=== PATIENT | male | born 1970 ===

== ENCOUNTER 2025-03-10 08:17 | Outpatient (AMB) | payer OTHER, SELFPAY ==
--- OUTSIDE RECORDS SUMMARY | 2025-03-10 09:08 | XMS_ITS | Clinical Summary ---
Author Organization [facility] Address [facility] [employer] [address] [place] [address] Phone Care Team Providers Care Inspector General Name Role Phone Kali Ugarte MD Primary Care Provider [phone] Social History Tobacco Use Types Packs/Day Years Used Date Smoking Tobacco: Never Assessed Education Answer Date Recorded Are you interested in more education? Not on lanre e 10/28/2022 Are you concerned about learning? Not on file 10/28/2022 No 10/28/2022 No 10/28/2022 Digital Access Answer Date Recorded No 11/28/2022 No 11/28/2022 No 11/28/2022 Reliable internet access at home? Not on file 11/28/2022 Device with a working camera? Not on file Sex and Gender Information Value Date Recorded Sex Assigned at Not on file Legal Sex Male 12:13 PM EDT Gender Identity Not on file Sexual Orientation Not on file Last Filed Vital Signs Vital Sign Reading Time Taken Comments Blood Pressure 139/93 11/08/2016 10:22 AM EDT Pulse 71 11/08/2016 10:22 AM EDT Temperature - - Respiratory Rate 18 11/08/2016 10:22 AM EDT Oxygen Saturation 98% 11/08/2016 10:22 AM EDT Inhaled Oxygen Concentration - - Weight - - Height - - Body Mass Index - - Plan of Treatment Health Maintenance Due Date Last Done Comments Adult Td,Tdap Booster 1969 LIPID PANEL 1969 DEPRESSION SCREENING 1981 SMOKING Hx and SMOKELESS TOB ACCO SCREENING 1982 HEPATITIS C SCREENING 11/13/1987 HIV ONE-TIME SCREENING (18-6 5 YEARS) 11/13/1987 COLOGUARD 2014 COLONOSCOPY 2014 COLORECTAL CANCER SCREENING 2014 FIT TEST 2014 FOBT 2014 SIGMOIDOSCOPY 2014 VIRTUAL COLONOSCOPY 2014 PNEUMOCOCCAL VACCINES (50+ y ears) (1 of 1 - PCV) 11/13/2019 ZOSTER VACCINES (1 of 2) 11/13/2019 COVID-19 VACCINE (1 - 2023-2 5 season) 2024 INFLUENZA VACCINE (#1) 2025 HEPATITIS A VACCINES Aged Out No long er eligible based on patient's age to complete this topic HIB VACCINES Aged Out No longer eligi ble based on patient's age to complete this topic MENINGOCOCCAL VACCINES (ACWY) Aged Out No longer eligible based on patient's age to complete this topic MENINGOCOCCAL VACCINES (B) Aged Out N o longer eligible based on patient's age to complete this topic Medical Devices Not on file Insurance [employer] TOTAL CHOICE INDEMNITY [employer] TOTAL CHOICE INDEMNITY [employer] TOTAL CHOICE INDEMNITY [employer] TOTAL CHOICE INDEMNITY [employer] TOTAL CHOICE INDEMNITY [employer] TOTAL CHOICE INDEMNITY [employer] TOTAL CHOICE INDEMNITY [employer] TOTAL CHOICE INDEMNITY [employer] [place] [address] Care Teams Inspector General Relationship Specialty Start Date End Date Kali Ugarte MD PCP - General Internal Medicine 03/26/15 Additional Source Comments The information contained in this document represents components of the legal health record. It is not the complete legal health record.[facility]
== END 2025-03-10 08:20 | disposition home or self-care (01) ==
LOC: HO.HMGAL 08:17
PROVIDERS: PCP Internal Medicine; Visit Provider Registered Nurse Emergency
DX: J30.89 Other allergic rhinitis (principal)
CPT/HCPCS: 95117; 95165

== ENCOUNTER 2025-03-24 08:42 | Outpatient (AMB) | payer OTHER, SELFPAY ==
--- OUTSIDE RECORDS SUMMARY | 2025-03-24 10:03 | XMS_ITS | Clinical Summary ---
Author Organization [facility] Address [facility] [employer] [address] [place] [phone] Phone Care Team Providers Care Claims Service Adjustor Name Role Phone Kali Ugarte MD Primary Care Provider [phone] Social History Tobacco Use Types Packs/Day Years [...] topic Medical Devices Not on file Insurance [employer] TOTAL CHOICE INDEMNITY [employer] TOTAL CHOICE INDEMNITY [employer] TOTAL CHOICE INDEMNITY [employer] TOTAL CHOICE INDEMNITY [employer] TOTAL CHOICE INDEMNITY [employer] TOTAL CHOICE INDEMNITY [employer] TOTAL CHOICE INDEMNITY [employer] TOTAL CHOICE INDEMNITY [employer] [place] [address] Care Teams Claims Service Adjustor Relationship Specialty Start Date End Date Kali Ugarte MD PCP - General Internal Medicine 03/26/15 Additional Source Comments The information contained in this document represents components of the legal health record. It is not the complete legal health record.[facility]
== END 2025-03-24 08:42 | disposition home or self-care (01) ==
LOC: HO.HMGAL 08:42
PROVIDERS: PCP Internal Medicine; Visit Provider Registered Nurse Emergency
DX: J30.89 Other allergic rhinitis (principal)
CPT/HCPCS: 95117; 95165

== ENCOUNTER 2025-04-07 08:23 | Outpatient (AMB) | payer OTHER, SELFPAY ==
--- OUTSIDE RECORDS SUMMARY | 2025-04-07 08:48 | XMS_ITS | Clinical Summary ---
Author Organization [facility] Address [facility] [employer] [address] [place] [phone] Phone Care Team Providers Care Aircraft Rigging And Controls Mechanic Name Role Phone Kali Ugarte MD Primary Care Provider [phone] Social History Tobacco Use Types Packs/Day Years [...] topic Medical Devices Not on file Insurance [employer] TOTAL CHOICE INDEMNITY [employer] TOTAL CHOICE INDEMNITY [employer] TOTAL CHOICE INDEMNITY [employer] TOTAL CHOICE INDEMNITY [employer] TOTAL CHOICE INDEMNITY [employer] TOTAL CHOICE INDEMNITY [employer] TOTAL CHOICE INDEMNITY [employer] TOTAL CHOICE INDEMNITY [employer] [place] [address] Care Teams Aircraft Rigging And Controls Mechanic Relationship Specialty Start Date End Date Kali Ugarte MD PCP - General Internal Medicine 03/26/15 Additional Source Comments The information contained in this document represents components of the legal health record. It is not the complete legal health record.[facility]
== END 2025-04-07 08:59 | disposition home or self-care (01) ==
LOC: HO.HMGAL 08:23
PROVIDERS: PCP Internal Medicine; Visit Provider Registered Nurse Emergency
DX: J30.89 Other allergic rhinitis (principal)
CPT/HCPCS: 95117; 95165

== ENCOUNTER 2025-04-21 09:03 | Outpatient (AMB) | payer OTHER, SELFPAY | END 2025-04-21 09:08 | disposition home or self-care (01) | LOC: HO.HMGAL 09:03 | PROVIDERS: PCP Internal Medicine; Visit Provider Registered Nurse Emergency | DX: J30.89 Other allergic rhinitis (principal) | CPT/HCPCS: 95117; 95165 ==

== ENCOUNTER 2025-05-05 08:27 | Outpatient (AMB) | payer OTHER, SELFPAY ==
--- OUTSIDE RECORDS SUMMARY | 2025-05-05 08:48 | XMS_ITS | Clinical Summary ---
Author Organization [facility] Address [facility] [email or web address] [address] [place] [phone] Phone Care Team Providers Care Screwhead Polisher Name Role Phone Kali Ugarte MD Primary Care Provider [phone] Social History Tobacco Use Types Packs/Day Years [...] 11/13/2019 ZOSTER VACCINES (1 of 2) 11/13/2019 INFLUENZA VACCINE (#1) 2025 COVID-19 VACCINE (1 - 2024-2 6 season) 2025 RSV VACCINE (1 - 1-dose 75+ series) 2044 HEPATITIS A VACCINES Aged Out No long [...] topic Medical Devices Not on file Insurance [facility] TOTAL CHOICE INDEMNITY [place] [id number] [employer] TOTAL CHOICE INDEMNITY [employer] TOTAL CHOICE INDEMNITY [employer] TOTAL CHOICE INDEMNITY [employer] TOTAL CHOICE INDEMNITY [employer] TOTAL CHOICE INDEMNITY [employer] TOTAL CHOICE INDEMNITY [employer] TOTAL CHOICE INDEMNITY [employer] TOTAL CHOICE INDEMNITY Care Teams Screwhead Polisher Relationship Specialty Start Date End Date Kali Ugarte MD [id number] [place] [address] PCP - General Internal Medicine 03/26/15 Additional Source Comments The information contained in this document represents components of the legal health record. It is not the complete legal health record.[facility]
== END 2025-05-05 08:32 | disposition home or self-care (01) ==
LOC: HO.HMGAL 08:27
PROVIDERS: PCP Internal Medicine; Visit Provider Registered Nurse Emergency
DX: J30.89 Other allergic rhinitis (principal)
CPT/HCPCS: 95117; 95165

== ENCOUNTER 2025-05-19 08:51 | Outpatient (AMB) | payer OTHER, SELFPAY | END 2025-05-19 08:51 | disposition home or self-care (01) | LOC: HO.HMGAL 08:51 | PROVIDERS: PCP Internal Medicine; Visit Provider Registered Nurse Emergency | DX: J30.89 Other allergic rhinitis (principal) | CPT/HCPCS: 95117; 95165 ==

== ENCOUNTER 2025-06-09 09:16 | Outpatient (AMB) | payer OTHER, SELFPAY | END 2025-06-09 09:17 | disposition home or self-care (01) | LOC: HO.HMGAL 09:16 | PROVIDERS: PCP Internal Medicine; Visit Provider Registered Nurse Emergency | DX: J30.89 Other allergic rhinitis (principal) | CPT/HCPCS: 95117; 95165 ==